=== PATIENT | female | born 1940 | race Caucasian/White ===

== ENCOUNTER 2017-05-19 08:14 | Emergency (ER) | payer MEDICARE ==
[2017-05-19 08:58] LABS: BASOPHILS # (AUTO) 0.03 x10^3/uL (0-0.1); BASOPHILS % (AUTO) 0 % (0-1); EOSINOPHILS # (AUTO) 0.12 x10^3/uL (0-0.4); EOSINOPHILS % (AUTO) 1 % (1-7); LYMPHOCYTES # (AUTO) 2.02 x10^3/uL (1-3.4); LYMPHOCYTES % (AUTO) 22 % (22-44); MD NO; MEAN CORPUSCULAR HEMOGLOBIN 26.2 pg (27.0-34.8); MEAN CORPUSCULAR HGB CONC 32.2 g/dL (32.4-35.8); MEAN CORPUSCULAR VOLUME 81.6 fL (80-100); MEAN PLATELET VOLUME 8.2 fL (7.4-10.4); MONOCYTES % (AUTO) 1 % (2-9); NEUTROPHILS # (AUTO) 6.77 x10^3/uL (1.8-6.8); NEUTROPHILS % (AUTO) 75 % (42-75); PLATELET COUNT 348 x10^3/uL (130-400); RED BLOOD COUNT 5.16 x10^6/uL (3.82-5.3); RED CELL DISTRIBUTION WIDTH 15.7 % (9.6-15.2)
[2017-05-19] MEDS ORDERED: DIPHENHYDRAMINE 50 MG/ML, 1ML IVPush ONE (09:00)
[2017-05-19] MEDS ORDERED: SODIUM CHLORIDE 0.9% 1,000ML IVBOLUS ONE (09:00)
[2017-05-19] MEDS ORDERED: SODIUM CHLORIDE FLUSH 10ML SYR IVF ONE (09:00)
[2017-05-19 09:11] LABS: ALANINE AMINOTRANSFERASE 26 U/L (12-78); ALBUMIN 3.4 g/dL (3.4-5.0); ANION GAP 7 mmol/L (5-15); CALCIUM 8.4 mg/dL (8.5-10.1); CHLORIDE 112 mmol/L (98-107); CREATININE 0.94 mg/dL (0.55-1.02)
[2017-05-19 09:13] LABS: ALKALINE PHOSPHATASE 59 U/L (45-117); BILIRUBIN,TOTAL 0.4 mg/dL (0.2-1.0); TOTAL PROTEIN 6.8 g/dL (6.4-8.2)
[2017-05-19] MEDS ORDERED: FAMOTIDINE 20 MG/2 ML ONE (09:19)
[2017-05-19] MEDS ORDERED: ONDANSETRON 2MG/ML, 2ML ONE (09:19)
[2017-05-19] MEDS ORDERED: DIPHENHYDRAMINE 50 MG/ML, 1ML ONE (09:19)
[2017-05-19] MEDS ORDERED: PLEASE ENTER WEIGHT MC SCH (09:30)
[2017-05-19] MEDS ORDERED: ONDANSETRON 2MG/ML, 2ML IVPush ONE (09:30)
[2017-05-19] MEDS ORDERED: FAMOTIDINE 20 MG/2 ML IVP ONE (09:30)
[2017-05-19 09:54] LABS: RAPID INFLUENZA A Negative (Negative); RAPID INFLUENZA B Negative (Negative)
[2017-05-19 10:09] LABS: CLOSTRIDIUM DIFFICILE ANTIGEN NEGATIVE; CLOSTRIDIUM DIFFICILE TOXIN NEGATIVE (Negative)
[2017-05-19 11:20] VITALS: BP 18/62
== END 2017-05-19 11:27 | disposition home or self-care (01) ==
LOC: ED 10:40
DX: L23.9 Allergic contact dermatitis, unspecified cause (principal); R19.7 Diarrhea, unspecified; I10 Essential (primary) hypertension; E11.9 Type 2 diabetes mellitus without complications
CPT/HCPCS: 36415; 80053; 85025; 87324; 87400; 89055; 96361; 96374; 96375; 99285; J1200; J2405; J7030; S0028

== ENCOUNTER 2018-06-11 09:50 | Day surgery (SDC) | payer MEDICARE ==
[~2018-06-11] VITALS: Ht 167.1 cm; Wt 97.3 kg
[2018-06-11 10:17] VITALS: BP 132/74
== END 2018-06-11 11:41 | disposition home or self-care (01) ==
LOC: CACL 09:50
PROVIDERS: ATTEND Internal Medicine Cardiovascular Disease
DX: Z45.09 Encounter for adjustment and management of other cardiac device (principal); I48.91 Unspecified atrial fibrillation; I10 Essential (primary) hypertension; Z88.1 Allergy status to other antibiotic agents; Z88.8 Allergy status to other drugs, medicaments and biological substances
CPT/HCPCS: 33285; C1764

== ENCOUNTER 2020-07-06 12:20 | Day surgery (SDC) | payer MEDICARE ==
[~2020-07-06 12:20] MED LIST: LIDOCAINE 2%, 20ML ONE
== END 2020-07-06 13:05 | disposition home or self-care (01) ==
LOC: CACL 12:20
PROVIDERS: ATTEND Internal Medicine Cardiovascular Disease
DX: Z45.09 Encounter for adjustment and management of other cardiac device (principal); I48.0 Paroxysmal atrial fibrillation; I10 Essential (primary) hypertension; E11.9 Type 2 diabetes mellitus without complications; E78.49 Other hyperlipidemia; Z79.01 Long term (current) use of anticoagulants; Z79.84 Long term (current) use of oral hypoglycemic drugs; Z79.899 Other long term (current) drug therapy; Z88.2 Allergy status to sulfonamides; Z88.8 Allergy status to other drugs, medicaments and biological substances
CPT/HCPCS: 33285; 33286; C1764

== ENCOUNTER 2020-11-14 05:59 | Inpatient (IN) | payer MEDICARE ==
[~2020-11-14] VITALS: Ht 165.1 cm; Wt 101.7 kg
[2020-11-14] MEDS ORDERED: RIVA20TA PO (06:43)
[2020-11-14] MEDS ORDERED: Magnesium Citrate PO (06:43)
[2020-11-14] MEDS ORDERED: ASPI81TA45 PO (06:43)
[2020-11-14] MEDS ORDERED: METF500T17 PO (06:43)
[2020-11-14] MEDS ORDERED: CHOL200074 PO (06:43)
[2020-11-14] MEDS ORDERED: LISI40TA9 PO (06:43)
[2020-11-14] MEDS ORDERED: HYDROCHLOROTH12.5 MG PO (06:43)
[2020-11-14] MEDS ORDERED: FENO160T PO (06:43)
[2020-11-14] MEDS ORDERED: AMLO-150 PO (06:43)
[2020-11-14] MEDS ORDERED: POTA20TA89 PO (06:43)
[2020-11-14] MEDS ORDERED: MAGN400T36 TP (06:43)
[2020-11-14] MEDS ORDERED: SOTA80TA PO (06:43)
[2020-11-14] MEDS ORDERED: LOVA40TA2 PO (06:43)
[2020-11-14] MEDS ORDERED: MELA10TA PO (06:44)
[2020-11-14] MEDS ORDERED: Magnesium TP (06:45)
[2020-11-14 06:50] VITALS: BP 157/75
[2020-11-14 06:59] LABS: BASOPHILS % (AUTO) 1 % (0-1); EOSINOPHILS % (AUTO) 3 % (1-7); LYMPHOCYTES % (AUTO) 33 % (22-44); MEAN CORPUSCULAR HEMOGLOBIN 31.1 pg (27.0-34.8); MEAN CORPUSCULAR HGB CONC 33.9 g/dL (32.4-35.8); MEAN PLATELET VOLUME 8.1 fL (7.4-10.4); MONOCYTES % (AUTO) 8 % (2-9); NEUTROPHILS % (AUTO) 55 % (42-75); PLATELET COUNT 287 x10^3/uL (130-400); RED BLOOD COUNT 5.04 x10^6/uL (3.82-5.3); RED CELL DISTRIBUTION WIDTH 13.4 % (9.6-15.2)
[2020-11-14] MEDS ORDERED: ONDANSETRON 2MG/ML, 2ML IVPush PRN (07:00)
[2020-11-14] MEDS ORDERED: CEFAZOLIN 1,000 MG IVPush ONE (07:00)
[2020-11-14] MEDS ORDERED: SODIUM CHLORIDE 0.9%, 500ML IVBOLUS ONE (07:00)
[2020-11-14 07:06] LABS: ANION GAP 10 mmol/L (5-15); CALCIUM 9.2 mg/dL (8.5-10.1); CHLORIDE 106 mmol/L (98-107); CREATININE 0.89 mg/dL (0.55-1.02)
[2020-11-14 07:15] LABS: INTERNATIONAL NORMALIZED RATIO 1.02 (0.93-1.1); PROTHROMBIN TIME 10.9 Seconds (9.6-11.5)
[2020-11-14] MEDS ORDERED: FENTANYL PF 250 MCG/5ML ONE (07:21)
[2020-11-14] MEDS ORDERED: PROPOFOL 10 MG/ML, 20ML ONE (07:21)
[2020-11-14] MEDS ORDERED: HEPARIN 1,000 UNITS/ML, 10ML ONE ×2 (07:22→07:25)
[2020-11-14] MEDS ORDERED: ROCURONIUM 10MG/ML,5ML ONE (07:25)
[2020-11-14] MEDS ORDERED: SUCCINYLCHOLINE 20 MG/ML, 10ML ONE (07:34)
[2020-11-14] MEDS ORDERED: LIDOCAINE 1%, 20ML ONE (07:34)
[2020-11-14] MEDS ORDERED: CEFAZOLIN 1,000 MG ONE (07:50)
[2020-11-14] MEDS ORDERED: ONDANSETRON 2MG/ML, 2ML ONE (07:54)
[2020-11-14] MEDS ORDERED: DEXAMETHASONE 4 MG/ML, 1ML ONE (07:54)
[2020-11-14] MEDS ORDERED: ACETAMINOPHEN 325 MG TABLET ONE (09:25)
[2020-11-14] MEDS: ASPIRIN 81 MG TABLET EC PO SCH (09:30)
[2020-11-14] MEDS ORDERED: ONDANSETRON 2MG/ML, 2ML IV PRN (09:30)
[2020-11-14] MEDS ORDERED: ACETAMINOPHEN 325 MG TABLET PO PRN (09:30)
[2020-11-14] MEDS: SODIUM CHLORIDE 0.9% 1,000 ML IV SCH ×2 (09:30→19:30)
[2020-11-14] MEDS ORDERED: MAALOX/HYOSCYAMINE/LIDOCAINE 45 ML BTL PO PRN (09:30)
[2020-11-14 10:47] VITALS: BP 124/73
[2020-11-14 14:46] VITALS: BP 124/73
[2020-11-14 19:11] VITALS: BP 112/68
[2020-11-14] MEDS: metFORMIN 500 MG TABLET PO SCH (21:00)
[2020-11-14] MEDS ORDERED: RIVAROXABAN 15 MG TABLET PO SCH (21:00)
[2020-11-14] MEDS: LISINOPRIL 40 MG TABLET PO SCH (21:00)
[2020-11-14] MEDS ORDERED: LOVASTATIN 40 MG TABLET PO SCH (21:00)
[2020-11-14] MEDS: AMLODIPINE 5 MG TABLET PO SCH (21:01)
[2020-11-14] MEDS: SOTALOL 80MG TABLET PO SCH (21:01)
[2020-11-15 02:19] VITALS: BP 112/68
[2020-11-15] MEDS: SODIUM CHLORIDE 0.9% 1,000 ML IV SCH (05:30)
[2020-11-15 05:48] LABS: CHLORIDE 103 mmol/L (98-107)
[2020-11-15 05:49] LABS: BASOPHILS % (AUTO) 0 % (0-1); EOSINOPHILS % (AUTO) 0 % (1-7); LYMPHOCYTES % (AUTO) 16 % (22-44); MEAN CORPUSCULAR HGB CONC 33.5 g/dL (32.4-35.8); MEAN PLATELET VOLUME 8.5 fL (7.4-10.4); MONOCYTES % (AUTO) 5 % (2-9); NEUTROPHILS % (AUTO) 78 % (42-75); PLATELET COUNT 274 x10^3/uL (130-400); RED BLOOD COUNT 4.34 x10^6/uL (3.82-5.3); RED CELL DISTRIBUTION WIDTH 13.4 % (9.6-15.2)
[2020-11-15 05:52] LABS: ANION GAP 10 mmol/L (5-15); CALCIUM 8.5 mg/dL (8.5-10.1); CREATININE 0.88 mg/dL (0.55-1.02)
[2020-11-15 06:43] VITALS: BP 126/68
[2020-11-15] MEDS ORDERED: ACET325T26 PO (08:26)
[2020-11-15] MEDS: FENOFIBRATE 145 MG TABLET PO SCH ×2 (08:27→08:58)
[2020-11-15] MEDS: ASPIRIN 81 MG TABLET EC PO SCH ×2 (08:28→08:58)
[2020-11-15] MEDS: SOTALOL 80MG TABLET PO SCH (08:28)
[2020-11-15] MEDS: metFORMIN 500 MG TABLET PO SCH (08:29)
[2020-11-15] MEDS: AMLODIPINE 5 MG TABLET PO SCH (08:29)
[2020-11-15] MEDS: LISINOPRIL 40 MG TABLET PO SCH (08:29)
[2020-11-15] MEDS ORDERED: POTASSIUM CHLORIDE 20 MEQ TAB.ER.PRT PO SCH (09:00)
[2020-11-15] MEDS ORDERED: HYDROCHLOROTHIAZIDE 25 MG TABLET PO SCH (09:00)
[2020-11-15] MEDS ORDERED: ASPI81TA45 PO (10:33)
== END 2020-11-15 11:21 | disposition home or self-care (01) | DRG 274 ==
LOC: ORIP 05:59 → 5SO 10:52 → DCLOUNGE 11-15 11:14
PROVIDERS: ADMIT Internal Medicine Cardiovascular Disease; ATTEND Internal Medicine Cardiovascular Disease
PROC: B24BZZ4 Ultrasonography of Heart with Aorta, Transesophageal (ICD-10-PCS; 2020-11-14)
PROC: 02L73DK Occlusion of Left Atrial Appendage with Intraluminal Device, Percutaneous Approach (ICD-10-PCS; principal; 2020-11-14 07:30)
DX: I48.0 Paroxysmal atrial fibrillation (principal); Z00.6 Encounter for examination for normal comparison and control in clinical research program; I48.92 Unspecified atrial flutter; I10 Essential (primary) hypertension; Z20.822 Contact with and (suspected) exposure to COVID-19; E78.5 Hyperlipidemia, unspecified; E11.9 Type 2 diabetes mellitus without complications; Z79.899 Other long term (current) drug therapy
CPT/HCPCS: 33340; 36415; 71045; 80048; 83880; 85025; 85347; 85610; 86850; 86900; 87635; 93005; 93308; 93312; 93325; 93355; C1760; C1766; C1894; G0378; J0690; J1100; J1644; J2405; J2704; J3010; C1769; J0330; Q9967

== ENCOUNTER 2020-12-19 05:52 | Day surgery (SDC) | payer MEDICARE ==
[~2020-12-19] VITALS: Ht 165.1 cm; Wt 97.2 kg
[~2020-12-19 05:52] MED LIST changes: +ACET325T26 PO; +AMLO-150 PO; +ASPI81TA45 PO; +CHOL200074 PO; +FENO160T PO; +HYDROCHLOROTH12.5 MG PO; -LIDOCAINE 2%, 20ML ONE; +LISI40TA9 PO; +LOVA40TA2 PO; +MAGN400T36 TP; +MELA10TA PO; +METF500T17 PO; +Magnesium Citrate PO; +Magnesium TP; +POTA20TA89 PO; +RIVA20TA PO; +SOTA80TA PO
[2020-12-19] MEDS ORDERED: SODIUM CHLORIDE 0.9% 1,000 ML IV ONE (06:30)
[2020-12-19 06:41] VITALS: BP 138/77
[2020-12-19] MEDS ORDERED: PROPOFOL 10 MG/ML, 20ML ONE (07:38)
== END 2020-12-19 08:59 | disposition home or self-care (01) ==
LOC: CACL 05:52
PROVIDERS: ATTEND Internal Medicine Cardiovascular Disease
DX: I48.0 Paroxysmal atrial fibrillation (principal); I08.3 Combined rheumatic disorders of mitral, aortic and tricuspid valves; I70.0 Atherosclerosis of aorta; I10 Essential (primary) hypertension; E11.9 Type 2 diabetes mellitus without complications; E78.49 Other hyperlipidemia; Z20.822 Contact with and (suspected) exposure to COVID-19; Z79.01 Long term (current) use of anticoagulants; Z79.82 Long term (current) use of aspirin; Z79.84 Long term (current) use of oral hypoglycemic drugs; Z79.899 Other long term (current) drug therapy; Z88.2 Allergy status to sulfonamides; Z88.8 Allergy status to other drugs, medicaments and biological substances
CPT/HCPCS: 87635; 93312; 93321; 93325; J2704